=== PATIENT | male | born 1945 | race Caucasian/White ===

== ENCOUNTER 2020-02-10 11:53 | Emergency (ER) | payer MEDICARE, BC ==
[2020-02-10] MEDS ORDERED: Sodium Chloride 0.9% 1,000 ML IV ONE ×2 (12:16→13:20)
--- NOTE | 2020-02-10 12:16 | EDM.PDOC ---
ED HPI GENERAL MEDICAL PROBLEM - General Chief Complaint: Diabetic Complaint Stated Complaint: Hyperglycemia Time Seen by Provider: 02/10/20 11:59 Source of Information: Reports: Patient, Other ([facility] staff) History Limitations: Reports: No Limitations - History of Present Illness INITIAL COMMENTS - FREE TEXT/NARRATIVE: Patient sent to ER for evaluation due to hyperglycemia/nausea/emesis. Found to have elevated potassium/blood sugar this morning. Given dose of kayexalate which led to an incontinent loose stool prior to coming to hospital. Patient denies fever/chills, URI complaints, new pain complaints, UTI symptoms or other acute changes. Was given extra 10 units insulin earlier this morning. No additional information given to us from DC home - Related Data Allergies Allergy/AdvReac Type Severity Reaction Status Date / Time No Known Allergies Allergy Verified 02/10/20 12:24 Home Meds: Home Meds Acetaminophen 2 tab PO Q4HR PRN 02/10/20 [History] DULoxetine HCl [Duloxetine HCl] 1 cap PO DAILY 02/10/20 [History] Gabapentin [Neurontin] 1 cap PO TID 02/10/20 [History] Insulin Aspart [NovoLOG] 6 units SQ TID 02/10/20 [History] Insulin Glarg,Human.Rec.Analog [Lantus] 20 units SQ BEDTIME 02/10/20 [History] Levothyroxine [Synthroid] 1 tab PO DAILY 02/10/20 [History] Methylphenidate HCl [Methylphenidate LA] 1 cap PO DAILY 02/10/20 [History] Midodrine 2 tab PO TID 02/10/20 [History] Ondansetron [Zofran ODT] 1 tab SL Q6HR PRN 02/10/20 [History] SUMAtriptan [Imitrex] 1 tab PO DAILY PRN 02/10/20 [History] Sennosides [Senna] 1 cap PO DAILY 02/10/20 [History] atorvaSTATin [Lipitor] 1 tab PO DAILY 02/10/20 [History] fentaNYL [Duragesic] 1 patch TRDERM ASDIRECTED 02/10/20 [History] metFORMIN [Glucophage XR] 1 tab PO TID 02/10/20 [History] oxyCODONE 0.52 tab PO QID 02/10/20 [History] polyethylene glycoL 3350 [MiraLAX] 1 pkg PO BID PRN 02/10/20 [History] traZODone HCl [Trazodone HCl] 1 tab PO DAILY 02/10/20 [History] Past Medical History HEENT History: Reports: Hard of Hearing Cardiovascular History: Reports: CAD, High Cholesterol, Other (See Below) (Orthostatic hypotension) Respiratory History: Reports: Sleep Apnea Gastrointestinal History: Reports: Chronic Constipation, GERD Genitourinary History: Reports: BPH, Chronic Renal Insuffiency, Diabetic Nephropathy, Neurogenic Bladder Musculoskeletal History: Reports: Back Pain, Chronic, Osteoarthritis, Other (See Below) (Chronic pain) Neurological History: Reports: Migraines, Neuropathy, Diabetic Psychiatric History: Reports: Anxiety, Depression Endocrine/Metabolic History: Reports: Hypothyroidism, IDDM Hematologic History: Reports: Anemia, Other (See Below) (Vitamin D Deficiency) - History Comment History Comment: Insomnia, restless legs ED ROS GENERAL - Review of Systems Review Of Systems: Comprehensive ROS is negative, except as noted in HPI. ED EXAM GENERAL NO PERIP PULSE - Physical Exam Exam: See Below Exam Limited By: No Limitations General Appearance: Alert, WD/WN, No Apparent Distress, Other (appears tired) Eye Exam: Bilateral Eye: EOMI, PERRL Ears: Hearing Grossly Normal Nose: No: Nasal Deformity, Nasal Swelling, Nasal Drainage Throat/Mouth: Normal Voice, No Airway Compromise, Other (dry lips) Head: Atraumatic, Normocephalic Neck: Normal Inspection, Supple, Non-Tender, Full Range of Motion Respiratory/Chest: No Respiratory Distress, Lungs Clear, Normal Breath Sounds, No Accessory Muscle Use, Chest Non-Tender Cardiovascular: Regular Rate, Rhythm, No Edema, No Murmur GI/Abdominal: Soft, Non-Tender, No Distention (Male) Exam: Deferred Rectal (Males) Exam: Deferred Back Exam: No: Muscle Spasm Extremities: Non-Tender, Slow Capillary Refill Neurological: Alert, Oriented, Normal Cognition, No Motor/Sensory Deficits Psychiatric: Normal Affect, Normal Mood Skin Exam: Warm, Dry, Intact, Normal Color EKG INTERPRETATION EKG Date: 02/10/20 Time: 12:51 Rhythm: Other (First degree block) Rate (Beats/Min): 99 [place]: LAD-Left [place] Deviation P-Wave: Present QRS: Other (mild increase in QRS duration/nonspecific) ST-T: Other (No obvious ischemic changes) QT: Normal Comparison: NA - No Prior EKG (Peaked T waves noted) Course - Vital Signs Last Recorded V/S: Last Vital Signs Temp 36.6 C 02/10/20 15:00 Pulse 111 H 02/10/20 15:00 Resp 21 H 02/10/20 15:00 BP 111/53 L 02/10/20 15:00 Pulse Ox 99 02/10/20 15:00 - Orders/Labs/Meds Orders: Active Orders 24 hr Category Date Time Status EKG Documentation Completion [RC] ASDIRECTED Care 02/10/20 12:52 Active Labs: Laboratory Tests 02/10/20 02/10/20 02/10/20 Range/Units 12:10 12:10 12:10 WBC 16.5 H (4.0-10.2) K/uL RBC 3.53 L (4.33-5.41) M/uL Hgb 10.6 L (13.1-16.8) g/dL Hct 34.4 L (39.0-49.0) % MCV 97.5 D (84.0-98.0) fL MCH 30.0 (28.2-33.3) pg MCHC 30.8 L (31.7-36.0) g/dL RDW 13.3 (11.2-14.1) % Plt Count 254 (150-350) K/uL Neut % (Auto) 90.8 H (45.0-80.0) % Lymph % (Auto) 5.0 L (10.0-50.0) % [place] % (Auto) 3.7 (2.0-14.0) % Eos % (Auto) 0.1 (0.0-5.0) % Baso % (Auto) 0.4 (0.0-2.0) % Neut # (Auto) 14.95 H (1.40-7.00) K/uL Lymph # (Auto) 0.82 (0.50-3.50) K/uL [place]ell # (Auto) 0.61 (0.00-1.00) K/uL Eos # (Auto) 0.01 (0.00-0.50) K/uL Baso # (Auto) 0.07 (0.00-0.20) K/uL Sodium 130 L (136-145) mmol/L Potassium 6.8 H* (3.5-5.1) mmol/L Chloride 89 L (98-107) mmol/L Carbon Dioxide 10.7 L (21.0-32.0) mmol/L BUN 54 H (7-18) mg/dL Creatinine 2.41 H (0.51-1.17) mg/dL Est Cr Clr Drug Dosing TNP Estimated GFR (MDRD) 27 mL/min Glucose 916 H* (74-106) mg/dL Calcium 9.6 (8.5-10.1) mg/dL Magnesium 1.9 (1.8-2.4) mg/dL Total Bilirubin 0.7 (0.2-1.0) mg/dL AST 17 (15-37) U/L ALT 24 (12-78) U/L Alkaline Phosphatase 133 H (46-116) IU/L Total Protein 7.7 (6.4-8.2) g/dL Albumin 4.0 (3.4-5.0) g/dL Specimen Type Urine Color Urine Appearance Urine pH (5.0-9.0) Ur Specific [place] (1.005-1.030) Urine Protein (NEGATIVE) mg/dL Urine Glucose (UA) (NEGATIVE) mg/dL Urine Ketones (NEGATIVE) mg/dL Urine Occult Blood (NEGATIVE) Urine Nitrite (NEGATIVE) Urine Bilirubin (NEGATIVE) Urine Urobilinogen (0.2-1.0) E.U./dL Ur Leukocyte Esterase (NEGATIVE) Ketones Positive 02/10/20 02/10/20 Range/Units 13:50 14:26 WBC (4.0-10.2) K/uL RBC (4.33-5.41) M/uL Hgb (13.1-16.8) g/dL Hct (39.0-49.0) % MCV (84.0-98.0) fL MCH (28.2-33.3) pg MCHC (31.7-36.0) g/dL RDW (11.2-14.1) % Plt Count (150-350) K/uL Neut % (Auto) (45.0-80.0) % Lymph % (Auto) (10.0-50.0) % [place] % (Auto) (2.0-14.0) % Eos % (Auto) (0.0-5.0) % Baso % (Auto) (0.0-2.0) % Neut # (Auto) (1.40-7.00) K/uL Lymph # (Auto) (0.50-3.50) K/uL [place] # (Auto) (0.00-1.00) K/uL Eos # (Auto) (0.00-0.50) K/uL Baso # (Auto) (0.00-0.20) K/uL Sodium (136-145) mmol/L Potassium (3.5-5.1) mmol/L Chloride (98-107) mmol/L Carbon Dioxide (21.0-32.0) mmol/L BUN (7-18) mg/dL Creatinine (0.51-1.17) mg/dL Est Cr Clr Drug Dosing Estimated GFR (MDRD) mL/min Glucose 928 H* (74-106) mg/dL Calcium (8.5-10.1) mg/dL Magnesium (1.8-2.4) mg/dL Total Bilirubin (0.2-1.0) mg/dL AST (15-37) U/L ALT (12-78) U/L Alkaline Phosphatase (46-116) IU/L Total Protein (6.4-8.2) g/dL Albumin (3.4-5.0) g/dL Specimen Type Urinblad Urine Color Yellow Urine Appearance Clear Urine pH 5.0 (5.0-9.0) Ur Specific [place] 1.020 (1.005-1.030) Urine Protein Negative (NEGATIVE) mg/dL Urine Glucose (UA) 500 H (NEGATIVE) mg/dL Urine Ketones 40 H (NEGATIVE) mg/dL Urine Occult Blood Negative (NEGATIVE) Urine Nitrite Negative (NEGATIVE) Urine Bilirubin Small H (NEGATIVE) Urine Urobilinogen 0.2 (0.2-1.0) E.U./dL Ur Leukocyte Esterase Negative (NEGATIVE) Ketones Meds: Medications Discontinued Medications Generic Name Dose Route Start Last Admin Trade Name Freq PRN Reason Stop Dose Admin Sodium Chloride 1,000 mls @ 999 mls/hr 02/10/20 12:16 02/10/20 12:10 Normal Saline IV 02/10/20 13:16 999 mls/hr .BOLUS ONE Administration Insulin Human Regular 100 unit 100 mls @ 6.9 mls/hr 02/10/20 13:00 02/10/20 13:12 / Sodium Chloride IV 0.1 units/kg/hr TITRATE JULIA 6.9 mls/hr Administration Protocol 0.1 UNITS/KG/HR Sodium Chloride 1,000 mls @ 999 mls/hr 02/10/20 13:20 02/10/20 13:25 Normal Saline IV 02/10/20 14:20 999 mls/hr .BOLUS ONE Administration Sodium Chloride 1,000 mls @ 200 mls/hr 02/10/20 15:00 02/10/20 14:53 Normal Saline IV 200 mls/hr ASDIRECTED JULIA Administration Insulin Human Regular 15 unit 02/10/20 12:56 02/10/20 13:12 Humulin R IV 02/10/20 12:57 15 unit ONETIME ONE Administration Insulin Human Regular 15 unit 02/10/20 14:08 02/10/20 14:49 Humulin R IV 02/10/20 14:09 15 unit ONETIME ONE Administration Ondansetron HCl 4 mg 02/10/20 14:08 02/10/20 14:51 Zofran IVPUSH 02/10/20 14:09 4 mg ONETIME ONE Administration Sodium Chloride 10 ml 02/10/20 15:00 02/10/20 14:52 Saline Flush FLUSH 10 ml ASDIRECTED JULIA Administration - Re-Assessments/Exams Free Text/Narrative Re-Assessment/Exam: 02/10/20 13:22 Blood sugar over 900. Potassium 6.8 Na 130 WBC 16.5 IV bolus NS given after IV established. 15u regular insulin IV. IV insulin drip ordered. ABG ordered. +Ketones in serum. Call placed to [facility] to see if they wished the patient to be transferred to their facility. They declined given the significant elevation in blood sugar. Call placed to [facility] in [place] and patient was accepted by from ER for transfer. 02/10/20 13:43 Lab unable to draw an ABG. Call placed to [facility] to inform them of this as pH was to determine level of bed placement. 02/10/20 14:09 Lab able to get some arterial blood. pH 7.09 This was relayed to [facility]. Recheck of BS showed no improvement as it continued to be 928. Additional 15u regular insulin ordered/no additional thereafter as insulin boluses in DKA are not usually that helpful. 02/10/20 14:20 Waiting for bed confirmation from [facility]. Patient stable, resting. Departure - Departure Time of Disposition: 15:00 Disposition: DC/Tfer to Acute Hospital 02 Condition: Fair Clinical Impression: Hyperkalemia DKA (diabetic ketoacidoses) Qualifiers: Diabetes mellitus type: type 2 Diabetes mellitus complication detail: without coma Qualified Code(s): E11.10 - Type 2 diabetes mellitus with ketoacidosis without coma - Discharge Information *PRESCRIPTION DRUG MONITORING PROGRAM REVIEWED*: Not Applicable *COPY OF PRESCRIPTION DRUG MONITORING REPORT IN PATIENT MAURISIO: Not Applicable Referrals: Malka Madrid PA [Primary Care Provider] - Forms: ED Department Discharge Sepsis Event Note (ED) - Focused Exam Vital Signs: Vital Signs Temp Pulse Resp BP Pulse Ox 02/10/20 15:00 36.6 C 111 H 21 H 111/53 L 99 02/10/20 14:40 111 H 17 127/51 L 98 02/10/20 14:20 111 H 22 H 137/55 L 97 02/10/20 14:00 108 H 20 119/49 L 98 02/10/20 13:50 104 H 22 H 109/45 L 100 02/10/20 13:40 104 H 20 95/44 L 98 02/10/20 13:20 95 22 H 95/44 L 100 02/10/20 13:00 94 19 98/48 L 99 02/10/20 12:50 97 20 102/52 L 99 02/10/20 12:30 95 20 101/53 L 99 02/10/20 12:20 95 20 89/43 L 96 02/10/20 12:10 36.7 C 96 24 H 88/32 L 97 - My Orders Last 24 Hours: My Active Orders 02/10/20 12:52 EKG Documentation Completion [RC] ASDIRECTED - Assessment/Plan Last 24 Hours: My Active Orders 02/10/20 12:52 EKG Documentation Completion [RC] ASDIRECTED
[2020-02-10 12:42] LABS: CHLORIDE,CL 89 mmol/L (98-107); SODIUM,NA 130 mmol/L (136-145)
[2020-02-10] MEDS ORDERED: Insulin Regular, Human 100 Units/ML 3 ML Vial IV ONE ×2 (12:56→14:08)
[2020-02-10] MEDS ORDERED: Ondansetron 4 MG/2 ML SDV IVPUSH ONE (14:08)
[2020-02-10] MEDS ORDERED: Sodium Chloride 0.9% 1,000 ML IV SCH (15:00)
[2020-02-10] MEDS ORDERED: Sodium Chloride 0.9% 10 ML Syringe FLUSH SCH (15:00)
[2020-02-11 10:25] LABS: PCO2 ARTERIAL 20 mmHG (35-45)
[2020-02-11 10:26] LABS: BASE EXCESS ARTERIAL -22 mmol/L (-2-3); BICARBONATE,ARTERIAL 6.2 mmol/L (22-26); O2 SATURATION ARTERIAL 97 % (95-98); PO2 ARTERIAL 119 mmHG (80-105)
[2020-02-11 10:27] LABS: O2 DELIVERY DEVICE ROOM AIR
== END 2020-02-10 15:20 ==
LOC: LL.ED 11:53
DX: E11.10 Type 2 diabetes mellitus with ketoacidosis without coma (principal); E87.5 Hyperkalemia; E11.65 Type 2 diabetes mellitus with hyperglycemia; E11.22 Type 2 diabetes mellitus with diabetic chronic kidney disease; N18.9 Chronic kidney disease, unspecified; E11.21 Type 2 diabetes mellitus with diabetic nephropathy; E11.40 Type 2 diabetes mellitus with diabetic neuropathy, unspecified; I25.10 Atherosclerotic heart disease of native coronary artery without angina pectoris; E78.00 Pure hypercholesterolemia, unspecified; F41.9 Anxiety disorder, unspecified; F32.9 Major depressive disorder, single episode, unspecified; E03.9 Hypothyroidism, unspecified; Z79.4 Long term (current) use of insulin; Z79.899 Other long term (current) drug therapy
CPT/HCPCS: 36415; 36600; 51702; 80053; 81003; 82009; 82803; 82947; 83735; 85025; 93005; 96361; 96374; 99285; J1815; J2405; J7030

== ENCOUNTER 2020-02-19 10:50 | Emergency (ER) | payer MEDICARE, BC ==
[2020-02-19] MEDS ORDERED: Ondansetron 4 MG/2 ML SDV IVPUSH ONE (11:02)
[2020-02-19] MEDS ORDERED: Pantoprazole 40 MG Vial IVPUSH ONE (11:02)
[2020-02-19] MEDS ORDERED: Famotidine 20 MG/2 ML SDV IVPUSH ONE (11:02)
[2020-02-19] MEDS ORDERED: Lactated Ringers 1,000 ML IV ONE (11:02)
--- NOTE | 2020-02-19 11:02 | EDM.PDOC ---
ED HPI GENERAL MEDICAL PROBLEM - General Chief Complaint: General Stated Complaint: aches all over, hypotension, high BG Time Seen by Provider: 02/19/20 10:50 Source of Information: Reports: Patient, EMS, Longterm Records, Old Records ([facility] EMR. No paper hospital chart available.). Denies: EMS Notes Reviewed (Not available at time of dictation) History Limitations: Reports: No Limitations - History of Present Illness INITIAL COMMENTS - FREE TEXT/NARRATIVE: The patient was brought to the emergency room via ambulance with refurbish technician accompaniment with no treatment in route. Note that the patient was referred for further evaluation secondary to nonspecific diffuse arthralgias and severe hyperglycemia with blood sugar greater than 700 as taken by the paramedics at time of their arrival. Patient is an extremely poor historian secondary to his current status, although he is alert. History of 03/12 diffuse nonspecific arthralgias with no complaints of chest pain, anginal complaints, abdominal pain, fever, dyspnea, etc.. No apparent recent UTI symptoms. Limited history available from [facility]. Note similar episode in this facility on 02/10/2020 with transfer to [facility] at that time. Onset: Today, Gradual Duration: Constant, Getting Worse Location: Reports: Generalized Quality: Reports: Ache Severity: Severe Improves with: Reports: None Worsens with: Reports: None Context: Reports: Other (As above). Denies: Sick Contact, Trauma Associated Symptoms: Reports: Confusion. Denies: Chest Pain, Cough, Diaphoresis, Fever/Chills Treatments MARINATOR: Reports: Other (see below) (None) Generalized Pain Score (Numeric/FACES): 9 - Related Data Allergies Allergy/AdvReac Type Severity Reaction Status Date / Time No Known Allergies Allergy Verified 02/19/20 11:39 Home Meds: Home Meds Acetaminophen 2 tab PO Q4HR PRN 02/10/20 [History] DULoxetine HCl [Duloxetine HCl] 1 cap PO DAILY 02/10/20 [History] Gabapentin [Neurontin] 1 cap PO TID 02/10/20 [History] Insulin Aspart [NovoLOG] 6 units SQ TID 02/10/20 [History] Insulin Glarg,Human.Rec.Analog [Lantus] 20 units SQ BEDTIME 02/10/20 [History] Levothyroxine [Synthroid] 1 tab PO DAILY 02/10/20 [History] Methylphenidate HCl [Methylphenidate LA] 1 cap PO DAILY 02/10/20 [History] Midodrine 2 tab PO TID 02/10/20 [History] Ondansetron [Zofran ODT] 1 tab SL Q6HR PRN 02/10/20 [History] SUMAtriptan [Imitrex] 1 tab PO DAILY PRN 02/10/20 [History] Sennosides [Senna] 1 cap PO DAILY 02/10/20 [History] atorvaSTATin [Lipitor] 1 tab PO DAILY 02/10/20 [History] fentaNYL [Duragesic] 1 patch TRDERM ASDIRECTED 02/10/20 [History] metFORMIN [Glucophage XR] 1 tab PO TID 02/10/20 [History] oxyCODONE 0.52 tab PO QID 02/10/20 [History] polyethylene glycoL 3350 [MiraLAX] 1 pkg PO BID PRN 02/10/20 [History] traZODone HCl [Trazodone HCl] 1 tab PO DAILY 02/10/20 [History] Past Medical History HEENT History: Reports: Hard of Hearing, Other (See Below) Other HEENT History: Bilateral presbycusis. Cardiovascular History: Reports: CAD, High Cholesterol, Other (See Below) Other Cardiovascular History: Orthostatic hypotension. Respiratory History: Reports: Sleep Apnea Gastrointestinal History: Reports: Chronic Constipation, GERD, Other (See Below) Genitourinary History: Reports: BPH, Chronic Renal Insuffiency, Diabetic Nephropathy, Neurogenic Bladder Musculoskeletal History: Reports: Back Pain, Chronic, Osteoarthritis, Osteoporosis, Other (See Below) Other Musculoskeletal History: Chronic low back pain with radiculopathy. Neurological History: Reports: Headaches, Chronic, Migraines, Neuropathy, Diabetic, Neuropathy, Peripheral, Other (See Below) Other Neuro History: Restless leg syndrome. Psychiatric History: Reports: Addiction, Anxiety, Depression, Other (See Below) Other Psychiatric History: Major depressive disorder. Narcotic dependency. Chronic insomnia. Endocrine/Metabolic History: Reports: Diabetes, Type II, Hypothyroidism, IDDM, Vitamin D Deficiency, Other (See Below) Other Endocrine/Metabolic History: IDDM with recurrent hyperglycemia/ketoacidosis. Hyperkalemia secondary to renal insufficiency. Hematologic History: Reports: Anemia, Other (See Below) Other Hematologic History: Anemia secondary to renal disease. - Past Surgical History GI Surgical History: Reports: Cholecystectomy, Colon, ERCP, Other (See Below) Other GI Surgeries/Procedures: Possible ERCP at [facility] in February 2020. 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 Social & Family History - Family History Family Medical History: Unobtainable - Living Situation & Occupation Living situation: Reports: Extended Care Facility ([facility] in [facility]) ED ROS GENERAL - Review of Systems Review Of Systems: Comprehensive ROS is negative, except as noted in HPI. ED EXAM, GENERAL - Physical Exam Exam: See Below Exam Limited By: No Limitations General Appearance: Alert, No Apparent Distress, Anxious (Moderate to severe) Eye Exam: Bilateral Eye: EOMI, Normal Inspection (No nystagmus), PERRL Ears: Normal External Exam, Normal Canal, Hearing Grossly Normal, Normal TMs Nose: Normal Inspection, Normal Mucosa, No Blood Head: Atraumatic. No: Facial Swelling, Facial Tenderness, Sinus Tenderness Neck: Supple, Non-Tender, Full Range of Motion, Carotid Bruit (Mild bilateral carotid bruits). No: Lymphadenopathy (L), Lymphadenopathy (R), Thyromegaly Respiratory/Chest: No Respiratory Distress, Lungs Clear, Normal Breath Sounds, No Accessory Muscle Use, Chest Non-Tender. No: Pleural Rub, Retractions Cardiovascular: Normal Peripheral Pulses, Regular Rate, Rhythm, No Edema, No Gallop, No JVD, No Murmur, No Rub. No: Gallop/S3, Gallop/S4, Friction Rub Peripheral Pulses: 2+: Radial (L), Radial (R), Dorsalis Pedis (L), Dorsalis Pedis (R) GI/Abdominal: Normal Bowel Sounds, Soft, Non-Tender, No Organomegaly, No Distention, No Abnormal Bruit, No Mass, Pelvis Stable. No: Guarding (Male) Exam: Deferred Rectal (Males) Exam: Deferred Back Exam: Normal Inspection, Full Range of Motion. No: CVA Tenderness (L), CVA Tenderness (R), Muscle Spasm Extremities: Normal Inspection, Normal Range of Motion, Non-Tender, No Pedal Edema, Normal Capillary Refill. No: Ludwin's Sign Neurological: Alert, CN II-XII Intact, Normal Reflexes (Negative Babinski's), No Motor/Sensory Deficits, Confused (Mild but alert) Psychiatric: Anxious (Moderate), Depressed Mood (Moderate with adequate eye contact) Skin Exam: Warm, Dry, Intact, Normal Color, No Rash. No: Diaphoretic, Wound/Incision Lymphatic: No Adenopathy EKG INTERPRETATION EKG Date: 02/19/20 Time: 13:53 Rhythm: Other (Sinus tachycardia) Rate (Beats/Min): 108 [place]: LAD-Left [place] Deviation (Extended left cardiac axis) P-Wave: Enlarged (Mild diffuse biphasic P waves) QRS: Normal (0.09 seconds with resolution of previous nonspecific intraventricular block) ST-T: Other (Mild T wave inversion in lead aVL with resolution of previous peaked T waves.) QT: Normal OK/PQ Interval: OK interval of 0.18 seconds with resolution of previous first- degree AV block Comparison: Change From Previous EKG (As above since 02/10/2020) EKG Interpretation Comments: 1. No acute ischemic changes 2. First-degree AV blockresolved Course - Vital Signs Last Recorded V/S: Last Vital Signs Temp 36.5 C 02/19/20 13:46 Pulse 108 H 02/19/20 15:20 Resp 18 02/19/20 15:20 BP 106/61 02/19/20 15:20 Pulse Ox 95 02/19/20 15:20 Vital Signs - 24 hr 02/19/20 02/19/20 02/19/20 10:55 11:07 11:25 Temperature [ 36.6 C Oral] Pulse, 98 95 87 Peripheral [ Pulse Oximetry] Respiratory 20 19 19 Rate Blood Pressure 98/42 L [Left Upper Arm ] Blood Pressure 84/44 L 74/44 L 91/50 L [Right Upper Arm] O2 Sat by Pulse 98 95 95 Oximetry 02/19/20 02/19/20 02/19/20 11:45 12:00 12:15 Temperature [ Oral] Pulse, 96 95 96 Peripheral [ Pulse Oximetry] Respiratory 15 18 22 H Rate Blood Pressure [Left Upper Arm ] Blood Pressure 83/43 L 104/44 L 110/33 L [Right Upper Arm] O2 Sat by Pulse 95 96 94 L Oximetry 02/19/20 02/19/20 02/19/20 12:30 13:00 13:15 Temperature [ Oral] Pulse, 98 100 102 H Peripheral [ Pulse Oximetry] Respiratory 21 H 19 19 Rate Blood Pressure [Left Upper Arm ] Blood Pressure 108/48 L 106/49 L 88/32 L [Right Upper Arm] O2 Sat by Pulse 96 94 L 97 Oximetry 02/19/20 02/19/20 02/19/20 13:30 13:46 14:03 Temperature [ 36.5 C Oral] Pulse, 109 H 109 H 111 H Peripheral [ Pulse Oximetry] Respiratory 19 20 18 Rate Blood Pressure [Left Upper Arm ] Blood Pressure 119/53 L 99/33 L 119/72 [Right Upper Arm] O2 Sat by Pulse 98 96 98 Oximetry 02/19/20 02/19/20 02/19/20 14:13 14:17 14:40 Temperature [ Oral] Pulse, 111 H 109 H 109 H Peripheral [ Pulse Oximetry] Respiratory 18 21 H 18 Rate Blood Pressure 100/57 L 107/29 L [Left Upper Arm ] Blood Pressure 111/71 [Right Upper Arm] O2 Sat by Pulse 100 94 L 98 Oximetry 02/19/20 02/19/20 02/19/20 14:55 15:05 15:20 Temperature [ Oral] Pulse, 107 H 107 H 108 H Peripheral [ Pulse Oximetry] Respiratory 17 19 18 Rate Blood Pressure [Left Upper Arm ] Blood Pressure 120/96 H 91/53 L 106/61 [Right Upper Arm] O2 Sat by Pulse 93 L 95 95 Oximetry - Orders/Labs/Meds Orders: Active Orders 24 hr Category Date Time Status [place] Catheter Insertion [Insert Urinary Catheter] [OM. Care 02/19/20 12:15 Ordered PC] Q24H Abdomen Series w Chest 1V [CR] Stat Exams 02/19/20 11:02 Taken CULTURE BLOOD [BC] Stat Lab 02/19/20 13:05 Received CULTURE BLOOD [BC] Stat Lab 02/19/20 13:25 Received CULTURE URINE [RM] Routine Lab 02/19/20 13:11 Received Blood Culture x2 Reflex Set [OM.PC] Urgent Oth 02/19/20 11:52 Ordered Obtain Past Medical Record [OM.PC] Urgent Oth 02/19/20 11:02 Active Peripheral IV Insertion Adult [OM.PC] Routine Oth 02/19/20 11:58 Ordered Peripheral IV Insertion Adult [OM.PC] Stat Oth 02/19/20 11:02 Ordered Resuscitation Status Stat Resus Stat 02/19/20 12:31 Ordered Labs: Laboratory Tests 02/19/20 02/19/20 02/19/20 Range/Units 11:05 11:05 11:05 WBC 10.0 (4.0-10.2) K/uL RBC 3.21 L (4.33-5.41) M/uL Hgb 9.6 L (13.1-16.8) g/dL Hct 30.1 L (39.0-49.0) % MCV 93.8 D (84.0-98.0) fL MCH 29.9 (28.2-33.3) pg MCHC 31.9 (31.7-36.0) g/dL RDW 13.6 (11.2-14.1) % Plt Count 188 (150-350) K/uL Neut % (Auto) 89.0 H (45.0-80.0) % Lymph % (Auto) 6.2 L (10.0-50.0) % [place] % (Auto) 4.3 (2.0-14.0) % Eos % (Auto) 0.1 (0.0-5.0) % Baso % (Auto) 0.4 (0.0-2.0) % Neut # (Auto) 8.94 H (1.40-7.00) K/uL Lymph # (Auto) 0.62 (0.50-3.50) K/uL [place] # (Auto) 0.43 (0.00-1.00) K/uL Eos # (Auto) 0.01 (0.00-0.50) K/uL Baso # (Auto) 0.04 (0.00-0.20) K/uL PT 11.0 (9.5-12.0) SEC INR 1.1 APTT 23.2 L (24.5-32.8) SEC ABG pH (7.35-7.45) ABG pCO2 (35-45) mmHG ABG pO2 (80-105) mmHG ABG HCO3 (22-26) mmol/L ABG Total CO2 (23-27) mmol/L ABG O2 Saturation (95-98) % ABG Base Excess (-2-3) mmol/L O2 Delivery Device Sodium (136-145) mmol/L Potassium (3.5-5.1) mmol/L Chloride (98-107) mmol/L Carbon Dioxide (21.0-32.0) mmol/L BUN (7-18) mg/dL Creatinine (0.51-1.17) mg/dL Est Cr Clr Drug Dosing mL/min Estimated GFR (MDRD) mL/min Glucose (74-106) mg/dL POC Glucose (65-110) mg/dl Lactic Acid (0.4-2.0) mmol/L Uric Acid (2.6-7.2) mg/dL Calcium (8.5-10.1) mg/dL Phosphorus (2.6-4.7) mg/dL Magnesium (1.8-2.4) mg/dL Total Bilirubin (0.2-1.0) mg/dL AST (15-37) U/L ALT (12-78) U/L Alkaline Phosphatase (46-116) IU/L Total Protein (6.4-8.2) g/dL Albumin (3.4-5.0) g/dL Amylase 55 (25-115) U/L Lipase (73-393) U/L Specimen Type Urine Color Urine Appearance Urine pH (5.0-9.0) Ur Specific [place] (1.005-1.030) Urine Protein (NEGATIVE) mg/dL Urine Glucose (UA) (NEGATIVE) mg/dL Urine Ketones (NEGATIVE) mg/dL Urine Occult Blood (NEGATIVE) Urine Nitrite (NEGATIVE) Urine Bilirubin (NEGATIVE) Urine Urobilinogen (0.2-1.0) E.U./dL Ur Leukocyte Esterase (NEGATIVE) U Hyaline Cast (Auto) Urine RBC /HPF Urine WBC /HPF Ketones 02/19/20 02/19/20 02/19/20 Range/Units 11:05 11:05 11:05 WBC (4.0-10.2) K/uL RBC (4.33-5.41) M/uL Hgb (13.1-16.8) g/dL Hct (39.0-49.0) % MCV (84.0-98.0) fL MCH (28.2-33.3) pg MCHC (31.7-36.0) g/dL RDW (11.2-14.1) % Plt Count (150-350) K/uL Neut % (Auto) (45.0-80.0) % Lymph % (Auto) (10.0-50.0) % [place] % (Auto) (2.0-14.0) % Eos % (Auto) (0.0-5.0) % Baso % (Auto) (0.0-2.0) % Neut # (Auto) (1.40-7.00) K/uL Lymph # (Auto) (0.50-3.50) K/uL [place] # (Auto) (0.00-1.00) K/uL Eos # (Auto) (0.00-0.50) K/uL Baso # (Auto) (0.00-0.20) K/uL PT (9.5-12.0) SEC INR APTT (24.5-32.8) SEC ABG pH (7.35-7.45) ABG pCO2 (35-45) mmHG ABG pO2 (80-105) mmHG ABG HCO3 (22-26) mmol/L ABG Total CO2 (23-27) mmol/L ABG O2 Saturation (95-98) % ABG Base Excess (-2-3) mmol/L O2 Delivery Device Sodium 131 L (136-145) mmol/L Potassium 6.0 H* (3.5-5.1) mmol/L Chloride 91 L (98-107) mmol/L Carbon Dioxide 12.4 L (21.0-32.0) mmol/L BUN 31 H (7-18) mg/dL Creatinine 1.93 H (0.51-1.17) mg/dL Est Cr Clr Drug Dosing 32.98 mL/min Estimated GFR (MDRD) 34 mL/min Glucose 739 H* (74-106) mg/dL POC Glucose (65-110) mg/dl Lactic Acid 5.8 H (0.4-2.0) mmol/L Uric Acid 6.4 (2.6-7.2) mg/dL Calcium 8.5 (8.5-10.1) mg/dL Phosphorus 5.1 H (2.6-4.7) mg/dL Magnesium 1.5 L (1.8-2.4) mg/dL Total Bilirubin 0.6 (0.2-1.0) mg/dL AST 31 (15-37) U/L ALT 26 (12-78) U/L Alkaline Phosphatase 102 (46-116) IU/L Total Protein 6.3 L (6.4-8.2) g/dL Albumin 3.3 L (3.4-5.0) g/dL Amylase (25-115) U/L Lipase 118 (73-393) U/L Specimen Type Urine Color Urine Appearance Urine pH (5.0-9.0) Ur Specific [place] (1.005-1.030) Urine Protein (NEGATIVE) mg/dL Urine Glucose (UA) (NEGATIVE) mg/dL Urine Ketones (NEGATIVE) mg/dL Urine Occult Blood (NEGATIVE) Urine Nitrite (NEGATIVE) Urine Bilirubin (NEGATIVE) Urine Urobilinogen (0.2-1.0) E.U./dL Ur Leukocyte Esterase (NEGATIVE) U Hyaline Cast (Auto) Urine RBC /HPF Urine WBC /HPF Ketones 02/19/20 02/19/20 02/19/20 Range/Units 11:05 13:05 13:11 WBC (4.0-10.2) K/uL RBC (4.33-5.41) M/uL Hgb (13.1-16.8) g/dL Hct (39.0-49.0) % MCV (84.0-98.0) fL MCH (28.2-33.3) pg MCHC (31.7-36.0) g/dL RDW (11.2-14.1) % Plt Count (150-350) K/uL Neut % (Auto) (45.0-80.0) % Lymph % (Auto) (10.0-50.0) % [place] % (Auto) (2.0-14.0) % Eos % (Auto) (0.0-5.0) % Baso % (Auto) (0.0-2.0) % Neut # (Auto) (1.40-7.00) K/uL Lymph # (Auto) (0.50-3.50) K/uL [place] # (Auto) (0.00-1.00) K/uL Eos # (Auto) (0.00-0.50) K/uL Baso # (Auto) (0.00-0.20) K/uL PT (9.5-12.0) SEC INR APTT (24.5-32.8) SEC ABG pH (7.35-7.45) ABG pCO2 (35-45) mmHG ABG pO2 (80-105) mmHG ABG HCO3 (22-26) mmol/L ABG Total CO2 (23-27) mmol/L ABG O2 Saturation (95-98) % ABG Base Excess (-2-3) mmol/L O2 Delivery Device Sodium (136-145) mmol/L Potassium 4.7 (3.5-5.1) mmol/L Chloride (98-107) mmol/L Carbon Dioxide (21.0-32.0) mmol/L BUN (7-18) mg/dL Creatinine (0.51-1.17) mg/dL Est Cr Clr Drug Dosing mL/min Estimated GFR (MDRD) mL/min Glucose 726 H* (74-106) mg/dL POC Glucose (65-110) mg/dl Lactic Acid (0.4-2.0) mmol/L Uric Acid (2.6-7.2) mg/dL Calcium (8.5-10.1) mg/dL Phosphorus (2.6-4.7) mg/dL Magnesium (1.8-2.4) mg/dL Total Bilirubin (0.2-1.0) mg/dL AST (15-37) U/L ALT (12-78) U/L Alkaline Phosphatase (46-116) IU/L Total Protein (6.4-8.2) g/dL Albumin (3.4-5.0) g/dL Amylase (25-115) U/L Lipase (73-393) U/L Specimen Type [place] Urine Color Yellow Urine Appearance Clear Urine pH 5.0 (5.0-9.0) Ur Specific [place] 1.015 (1.005-1.030) Urine Protein Negative (NEGATIVE) mg/dL Urine Glucose (UA) >=1000 H (NEGATIVE) mg/dL Urine Ketones 80 H (NEGATIVE) mg/dL Urine Occult Blood Negative (NEGATIVE) Urine Nitrite Negative (NEGATIVE) Urine Bilirubin Negative (NEGATIVE) Urine Urobilinogen 0.2 (0.2-1.0) E.U./dL Ur Leukocyte Esterase Negative (NEGATIVE) U Hyaline Cast (Auto) Rare Urine RBC Not seen /HPF Urine WBC Not seen /HPF Ketones Small-20 mg/dl 02/19/20 02/19/2002/18/20 Range/Units 13:16 14:00 14:48 WBC (4.0-10.2) K/uL RBC (4.33-5.41) M/uL Hgb (13.1-16.8) g/dL Hct (39.0-49.0) % MCV (84.0-98.0) fL MCH (28.2-33.3) pg MCHC (31.7-36.0) g/dL RDW (11.2-14.1) % Plt Count (150-350) K/uL Neut % (Auto) (45.0-80.0) % Lymph % (Auto) (10.0-50.0) % [place] % (Auto) (2.0-14.0) % Eos % (Auto) (0.0-5.0) % Baso % (Auto) (0.0-2.0) % Neut # (Auto) (1.40-7.00) K/uL Lymph # (Auto) (0.50-3.50) K/uL [place] # (Auto) (0.00-1.00) K/uL Eos # (Auto) (0.00-0.50) K/uL Baso # (Auto) (0.00-0.20) K/uL PT (9.5-12.0) SEC INR APTT (24.5-32.8) SEC ABG pH 7.10 L* (7.35-7.45) ABG pCO2 21 L* (35-45) mmHG ABG pO2 114 H (80-105) mmHG ABG HCO3 6.5 L (22-26) mmol/L ABG Total CO2 8 L (23-27) mmol/L ABG O2 Saturation 97 (95-98) % ABG Base Excess -21 L (-2-3) mmol/L O2 Delivery Device Room air Sodium (136-145) mmol/L Potassium (3.5-5.1) mmol/L Chloride (98-107) mmol/L Carbon Dioxide (21.0-32.0) mmol/L BUN (7-18) mg/dL Creatinine (0.51-1.17) mg/dL Est Cr Clr Drug Dosing mL/min Estimated GFR (MDRD) mL/min Glucose (74-106) mg/dL POC Glucose > 500 H* > 500 H* (65-110) mg/dl Lactic Acid (0.4-2.0) mmol/L Uric Acid (2.6-7.2) mg/dL Calcium (8.5-10.1) mg/dL Phosphorus (2.6-4.7) mg/dL Magnesium (1.8-2.4) mg/dL Total Bilirubin (0.2-1.0) mg/dL AST (15-37) U/L ALT (12-78) U/L Alkaline Phosphatase (46-116) IU/L Total Protein (6.4-8.2) g/dL Albumin (3.4-5.0) g/dL Amylase (25-115) U/L Lipase (73-393) U/L Specimen Type Urine Color Urine Appearance Urine pH (5.0-9.0) Ur Specific [place] (1.005-1.030) Urine Protein (NEGATIVE) mg/dL Urine Glucose (UA) (NEGATIVE) mg/dL Urine Ketones (NEGATIVE) mg/dL Urine Occult Blood (NEGATIVE) Urine Nitrite (NEGATIVE) Urine Bilirubin (NEGATIVE) Urine Urobilinogen (0.2-1.0) E.U./dL Ur Leukocyte Esterase (NEGATIVE) U Hyaline Cast (Auto) Urine RBC /HPF Urine WBC /HPF Ketones Urine specimen sent for culture and sensitivity. Blood cultures x2 were collected. Meds: Medications Discontinued Medications Generic Name Dose Route Start Last Admin Trade Name Freq PRN Reason Stop Dose Admin Famotidine 40 mg 02/19/20 11:02 02/19/20 11:24 Pepcid IVPUSH 02/19/20 11:03 40 mg ONETIME ONE Administration Furosemide 60 mg 02/19/20 11:53 02/19/20 13:11 Lasix IVPUSH 02/19/20 11:54 60 mg NOW ONE Administration Hydromorphone HCl 1 mg 02/19/20 11:04 02/19/20 11:12 Dilaudid IVPUSH 02/19/20 11:05 1 mg ONETIME ONE Administration Hydromorphone HCl 1 mg 02/19/20 14:39 02/19/20 14:54 Dilaudid IVPUSH 02/19/20 14:40 1 mg ONETIME ONE Administration Lactated Ringer's 1,000 mls @ 999 mls/hr 02/19/20 11:02 02/19/20 11:12 Ringers, Lactated IV 02/19/20 12:02 999 mls/hr .BOLUS ONE Administration Ceftriaxone Sodium 1 gm/ 100 mls @ 200 mls/hr 02/19/20 11:52 02/19/20 13:16 Sodium Chloride IV 02/19/20 12:21 200 mls/hr ONETIME ONE Administration Insulin Human Regular 300 unit 100 mls @ 2.298 mls/hr 02/19/20 12:00 / Sodium Chloride IV TITRATE JULIA Protocol 0.1 UNITS/KG/HR Sodium Chloride 1,000 mls @ 100 mls/hr 02/19/20 12:45 02/19/20 12:46 Normal Saline IV 100 mls/hr ASDIRECTED JULIA Administration Sodium Chloride 1,000 mls @ 125 mls/hr 02/19/20 12:45 02/19/20 13:49 Sodium Chloride 0.45% IV 125 mls/hr ASDIRECTED JULIA Administration Insulin Human Regular 100 unit 100 mls @ 6.895 mls/hr 02/19/20 13:30 02/19/20 13:44 / Sodium Chloride IV 0.1 units/kg/hr TITRATE JULIA 6.895 mls/hr Administration Protocol 0.1 UNITS/KG/HR Insulin Human Regular 10 unit 02/19/20 11:58 02/19/20 12:34 Humulin R IV 02/19/20 11:59 10 units ONETIME ONE Administration Ondansetron HCl 4 mg 02/19/20 11:02 02/19/20 11:15 Zofran IVPUSH 02/19/20 11:03 4 mg ONETIME ONE Administration Pantoprazole Sodium 40 mg 02/19/20 11:02 02/19/20 11:20 Protonix Iv IVPUSH 02/19/20 11:03 40 mg ONETIME ONE Administration Sodium Bicarbonate 50 meq 02/19/20 14:19 02/19/20 15:09 Sodium Bicarbonate 8.4% IVPUSH 02/19/20 14:20 Not Given ONETIME ONE Sodium Chloride 10 ml 02/19/20 11:02 02/19/20 14:56 Saline Flush FLUSH 10 ml ASDIRECTED PRN Administration Keep Vein Open Sodium Chloride 10 ml 02/19/20 11:58 Saline Flush FLUSH ASDIRECTED PRN Keep Vein Open Sodium Polystyrene Sulfonate 15 gm 02/19/20 13:28 02/19/20 13:46 Kayexalate PO 02/19/20 13:29 15 gm ONETIME ONE Administration - Radiology Interpretation Free Text/Narrative:: monitoring tech showed normal sinus rhythm with heart rate in the 90s initially with subsequent mild tachycardia in the 100s, however no ectopy or arrhythmia. Acute abdominal x-rays shows mild nonspecific bowel gaseous pattern with no free air, fluid levels, ileus, or obstruction. Note some pancreatic calcifications. No cardiomegaly, CHF, pulmonary infiltrates, pneumothorax, etc. Departure - Departure Time of Disposition: 15:35 Disposition: DC/Tfer to [facility] 02 Condition: Fair Clinical Impression: IDDM (insulin dependent diabetes mellitus), Hyperphosphatemia, Anemia, Hyperkalemia, DKA (diabetic ketoacidoses), Osteoarthritis, Elevated lactic acid level - Discharge Information *PRESCRIPTION DRUG MONITORING PROGRAM REVIEWED*: Not Applicable *COPY OF PRESCRIPTION DRUG MONITORING REPORT IN PATIENT MAURISIO: Not Applicable Referrals: PCP,None [Primary Care Provider] - Forms: ED Department Discharge, Interfacility Transfer EMTALA Sepsis Event Note (ED) - Focused Exam Vital Signs: Vital Signs Temp Pulse Resp BP BP Pulse Ox 02/19/20 15:20 108 H 18 106/61 95 02/19/20 15:05 107 H 19 91/53 L 95 02/19/20 14:55 107 H 17 120/96 H 93 L 02/19/20 14:40 109 H 18 111/71 98 02/19/20 14:17 109 H 21 H 107/29 L 94 L 02/19/20 14:13 111 H 18 100/57 L 100 02/19/20 14:03 111 H 18 119/72 98 02/19/20 13:46 36.5 C 109 H 20 99/33 L 96 02/19/20 13:30 109 H 19 119/53 L 98 02/19/20 13:15 102 H 19 88/32 L 97 02/19/20 13:00 100 19 106/49 L 94 L 02/19/20 12:30 98 21 H 108/48 L 96 02/19/20 12:15 96 22 H 110/33 L 94 L 02/19/20 12:00 95 18 104/44 L 96 02/19/20 11:45 96 15 83/43 L 95 02/19/20 11:25 87 19 91/50 L 95 02/19/20 11:07 95 19 74/44 L 95 02/19/20 10:55 36.6 C 98 20 98/42 L 84/44 L 98 - Problem List & Annotations (1) DKA (diabetic ketoacidoses) SNOMED Code(s): 623419168, 393706076 Code(s): E11.10 - TYPE 2 DIABETES MELLITUS WITH KETOACIDOSIS WITHOUT COMA Status: Acute Priority: High Onset Date: 02/19/20 Annotation/Comment:: Recurrent diabetic ketoacidosis with previous evaluation in this emergency room on 02/10/2020 as above. Patient apparently received an ERCP at [facility] during that previous hospitalization with no significant abdominal findings by today's exam. Amylase and lipase are normal despite possible pancreatic calcifications by today's x-rays. Further work-up by accepting providers depending on his clinical course. Telephone consultation at 13: [address] Gary, emergency room physician at [facility] in [place], who does accept the patient for direct admission. He will contact admitting physicians concerning this patient transfer. No further treatment recommendations given. Ambulance transfer with refurbish technician accompaniment. Note aggressive IV hydration during his emergency room care including 1 L lactated Ringer's by IV bolus., 500 mL of normal saline, and then changed to half-normal saline at 125 mls per hour prior to transfer. Despite some mildmoderate acidosis by ABGs today no sodium bicarbonate was given as per recommendations from accepting provider as above. Note persistent significant hyperglycemia prior to patient transfer. Qualifiers: Diabetes mellitus type: type 2 Diabetes mellitus complication detail: without coma Qualified Code(s): E11.10 - Type 2 diabetes mellitus with ketoacidosis without coma (2) Elevated lactic acid level SNOMED Code(s): 7409782 Code(s): R79.89 - OTHER SPECIFIED ABNORMAL FINDINGS OF BLOOD CHEMISTRY Status: Acute Priority: High Onset Date: 02/19/20 Annotation/Comment:: Note some hypotension at time of patient arrival with aggressive IV hydration as above. No direct clinical evidence of sepsis with no leukocytosis. Sepsis protocol was initiated, however, including IV fluids as above and initiation of IV Rocephin after blood cultures x2 were collected. Patient does have a previous history of hypotension with stable blood pressures at time of transfer. (3) Anemia SNOMED Code(s): 951146076 Code(s): D64.9 - ANEMIA, UNSPECIFIED Status: Acute Priority: High Annotation/Comment:: Note progressive anemia with hemoglobin of 10.6 on 02/09 and 9.6 today. No direct evidence of acute GI bleed. High-dose IV Pepcid and IV Protonix were given as GI prophylaxis. Further work-up by accepting providers depending on her clinical course. Qualifiers: Anemia type: unspecified type Qualified Code(s): D64.9 - Anemia, unspecified (4) Hyperkalemia SNOMED Code(s): 03461894 Code(s): E87.5 - HYPERKALEMIA Status: Acute Priority: High Onset Date: 02/19/20 Annotation/Comment:: Recurrent hyperkalemia with human regular insulin 10 units IV bolus given with initiation of human regular IV infusion by standard protocol. Kayexalate also given orally. Potassium normal at time of transfer with consideration of initiation of additional potassium by IV and/oral by accepting providers secondary to continued insulin infusion requirement. (5) Hyperphosphatemia SNOMED Code(s): 18474591 Code(s): E83.39 - OTHER DISORDERS OF PHOSPHORUS METABOLISM Status: Acute Priority: High Onset Date: 02/19/20 Annotation/Comment:: Consider PhosLo by accepting providers. (6) IDDM (insulin dependent diabetes mellitus) SNOMED Code(s): 48506962 Code(s): [id number] - Status: Chronic Priority: High Annotation/Comment:: Recurrent diabetic ketoacidosis as above. Further insulin adjustment by accepting providers. (7) Osteoarthritis SNOMED Code(s): 171426063 Code(s): M19.90 - UNSPECIFIED OSTEOARTHRITIS, UNSPECIFIED SITE Status: Chronic Priority: High Annotation/Comment:: Nonspecific arthralgias. IV Dilaudid required in the emergency room for patient comfort. Note history of chronic narcotic use and dependency. Qualifiers: Osteoarthritis location: multiple joints Osteoarthritis type: primary Qualified Code(s): M89.49 - Other hypertrophic osteoarthropathy, multiple sites - Problem List Review Problem List Initiated/Reviewed/Updated: Yes - My Orders Last 24 Hours: My Active Orders 02/19/20 11:02 Abdomen Series w Chest 1V [CR] Stat Obtain Past Medical Record [OM.PC] Urgent Peripheral IV Insertion Adult [OM.PC] Stat 02/19/20 11:52 Blood Culture x2 Reflex Set [OM.PC] Urgent 02/19/20 11:58 Peripheral IV Insertion Adult [OM.PC] Routine 02/19/20 12:15 Huntley Catheter Insertion [Insert Urinary Catheter] [OM.PC] Q24H 02/19/20 12:31 Resuscitation Status Stat 02/19/20 13:05 CULTURE BLOOD [BC] Stat 02/19/20 13:11 CULTURE URINE [RM] Routine 02/19/20 13:25 CULTURE BLOOD [BC] Stat - Assessment/Plan Last 24 Hours: My Active Orders 02/19/20 11:02 Abdomen Series w Chest 1V [CR] Stat Obtain Past Medical Record [OM.PC] Urgent Peripheral IV Insertion Adult [OM.PC] Stat 02/19/20 11:52 Blood Culture x2 Reflex Set [OM.PC] Urgent 02/19/20 11:58 Peripheral IV Insertion Adult [OM.PC] Routine 02/19/20 12:15 [place] Catheter Insertion [Insert Urinary Catheter] [OM.PC] Q24H 02/19/20 12:31 Resuscitation Status Stat 02/19/20 13:05 CULTURE BLOOD [BC] Stat 02/19/20 13:11 CULTURE URINE [RM] Routine 02/19/20 13:25 CULTURE BLOOD [BC] Stat Assessment:: As above Plan: As above. Extensive precautions were given to the patient, who is in agreement with the treatment plan. Ambulance transfer to [place] with refurbish technician accompaniment as above.
[2020-02-19] MEDS ORDERED: HYDROmorphone 1 MG/ML Syringe IVPUSH ONE ×2 (11:04→14:39)
[2020-02-19] MEDS: Sodium Chloride 0.9% 10 ML Syringe FLUSH PRN ×4 (11:18→14:56)
[2020-02-19 11:26] LABS: PTT,PARTIAL THROMBOPLSTIN TIME 23.2 SEC (24.5-32.8)
[2020-02-19] MEDS ORDERED: cefTRIAXone 1 GM in Sodium Chloride 0.9% 100 ML IV ONE (11:52)
[2020-02-19] MEDS ORDERED: Furosemide 40 MG/4 ML VIAL IVPUSH ONE (11:53)
[2020-02-19] MEDS ORDERED: Sodium Chloride 0.9% 10 ML Syringe FLUSH PRN (11:58)
[2020-02-19] MEDS ORDERED: Insulin Regular, Human 100 Units/ML 3 ML Vial IV ONE (11:58)
[2020-02-19] MEDS ORDERED: HUMAN IV SCH ×2 (12:00)
[2020-02-19] MEDS ORDERED: INSULIN REGULAR IV SCH ×2 (12:00)
[2020-02-19] MEDS ORDERED: SODIUM CHLORIDE 0.9% IV SCH ×2 (12:00)
[2020-02-19] MEDS ORDERED: Sodium Chloride 0.45% 1,000 ML IV SCH (12:45)
[2020-02-19] MEDS ORDERED: Sodium Chloride 0.9% 1,000 ML IV SCH (12:45)
[2020-02-19] MEDS ORDERED: Sodium Polystyrene Sulfonate 15 GM/60 ML Susp 60 ML Bot PO ONE (13:28)
[2020-02-19] MEDS ORDERED: Sodium Bicarbonate 8.4% 50 MEQ/50 ML Syringe IVPUSH ONE (14:19)
[2020-02-19 14:21] LABS: O2 DELIVERY DEVICE ROOM AIR
[2020-02-19 14:29] LABS: BASE EXCESS ARTERIAL -21 mmol/L (-2-3); BICARBONATE,ARTERIAL 6.5 mmol/L (22-26); O2 SATURATION ARTERIAL 97 % (95-98); PCO2 ARTERIAL 21 mmHG (35-45); PO2 ARTERIAL 114 mmHG (80-105)
== END 2020-02-19 15:35 ==
LOC: LL.ED 10:50
DX: E11.10 Type 2 diabetes mellitus with ketoacidosis without coma (principal); D64.9 Anemia, unspecified; E87.5 Hyperkalemia; M19.90 Unspecified osteoarthritis, unspecified site; E83.39 Other disorders of phosphorus metabolism; R74.0 Nonspecific elevation of levels of transaminase and lactic acid dehydrogenase [LDH]; E11.22 Type 2 diabetes mellitus with diabetic chronic kidney disease; E11.21 Type 2 diabetes mellitus with diabetic nephropathy; E11.42 Type 2 diabetes mellitus with diabetic polyneuropathy; E03.9 Hypothyroidism, unspecified; F32.9 Major depressive disorder, single episode, unspecified; E78.00 Pure hypercholesterolemia, unspecified; I25.10 Atherosclerotic heart disease of native coronary artery without angina pectoris; G43.909 Migraine, unspecified, not intractable, without status migrainosus; Z79.4 Long term (current) use of insulin; Z79.899 Other long term (current) drug therapy
CPT/HCPCS: 36415; 51702; 74022; 80053; 81001; 82009; 82150; 82803; 82947; 82962; 83605; 83690; 83735; 84100; 84132; 84550; 85025; 85610; 85730; 87040; 87086; 93005; 96361; 96365; 96375; 96376; 99285-25; A9270-GY; C9113; J0696; J1170; J1815-GY; J1940; J2405; J3490; J7030; J7050; J7120

== ENCOUNTER 2020-04-13 10:18 | Emergency (ER) | payer MEDICARE, BC ==
[2020-04-13] MEDS ORDERED: Sodium Chloride 0.9% 1,000 ML IV ONE (10:21)
[2020-04-13] MEDS ORDERED: Ondansetron 4 MG/2 ML SDV IVPUSH ONE (10:22)
[2020-04-13] MEDS ORDERED: Morphine 2 MG/ML SYRINGE IVPUSH ONE ×2 (10:50→11:47)
[2020-04-13 10:56] LABS: CHLORIDE,CL 95 mmol/L (98-107); SODIUM,NA 128 mmol/L (136-145)
[2020-04-13] MEDS ORDERED: Insulin Regular, Human 100 Units/ML 3 ML Vial IV ONE (11:44)
[2020-04-13] MEDS: Sodium Chloride 0.9% 10 ML Syringe FLUSH PRN ×2 (12:01→14:22)
--- NOTE | 2020-04-13 12:12 | EDM.PDOC ---
ED HPI GENERAL MEDICAL PROBLEM - General Chief Complaint: General Stated Complaint: Nausea/Vomiting, elevated blood sugar Time Seen by Provider: 04/13/20 10:20 Source of Information: Reports: Patient, Care Home Records - History of Present Illness INITIAL COMMENTS - FREE TEXT/NARRATIVE: Pt present to ER from [facility] with N/V and elevated blood glucose Has hx/o multiple episodes of hyperglycemia On 03/01 pt transferred with glucose 1176 Onset: Gradual Duration: Day(s): Location: Reports: Generalized Associated Symptoms: Reports: Nausea/Vomiting - Related Data Allergies Allergy/AdvReac Type Severity Reaction Status Date / Time tamsulosin Allergy Hypotension Verified 04/13/20 10:55 zolpidem [Zolpidem] AdvReac Mild Change Verified 04/13/20 10:55 Mental Status alprazolam AdvReac Change Verified 04/13/20 10:55 Mental Status diazepam AdvReac Change Verified 04/13/20 10:55 Mental Status trazodone AdvReac Change Verified 04/13/20 10:55 Mental Status Home Meds: Home Meds fentaNYL [Fentanyl] 75 mcg TRDERM ASDIRECTED 01/01/19 [History] polyethylene glycoL 3350 [MiraLAX] 17 gm PO DAILY PRN 01/01/19 [History] Gabapentin [Neurontin] 300 mg PO TID 03/10/19 [History] atorvaSTATin [Lipitor] 40 mg PO BEDTIME 03/10/19 [History] Aspirin [Halfprin] 81 mg PO DAILY 03/26/19 [History] Citalopram [Citalopram HBr] 20 mg PO DAILY 03/26/19 [History] Hydrocodone/Acetaminophen [Hydrocodone-Acetamin 10-325 mg] 1 tab PO Q4H PRN 03/26/19 [History] Ranitidine [Zantac] 150 mg PO BEDTIME 03/26/19 [History] SUMAtriptan succinate [Imitrex] 100 mg PO Q2H PRN 03/26/19 [History] diphenhydrAMINE [Benadryl] 25 mg PO BEDTIME PRN 03/26/19 [History] lisinopriL [Lisinopril] 2.5 mg PO DAILY 03/26/19 [History] Calcium Carbonate/Vitamin D3 [Calcium 600 + Vit D 200] 1 tab PO DAILY 04/19/19 [History] Glucagon [Gvoke Pfs 1-Pack Syringe] 1 mg IM ASDIRECTED PRN 04/19/19 [History] Insulin Glarg,Human.Rec.Analog [Lantus] 10 unit SUBCUT BID #14 ml 04/23/19 [Rx] Levothyroxine 25 mcg PO ACBREAKFAST #20 tablet 04/23/19 [Rx] Acetaminophen 2 tab PO Q4HR PRN 02/10/20 [History] DULoxetine HCl [Duloxetine HCl] 1 cap PO DAILY 02/10/20 [History] Gabapentin [Neurontin] 1 cap PO TID 02/10/20 [History] Insulin Aspart [NovoLOG] 6 units SQ TID 02/10/20 [History] Insulin Glarg,Human.Rec.Analog [Lantus] 20 units SQ BEDTIME 02/10/20 [History] Levothyroxine [Synthroid] 1 tab PO DAILY 02/10/20 [History] Methylphenidate HCl [Methylphenidate LA] 1 cap PO DAILY 02/10/20 [History] Midodrine 2 tab PO TID 02/10/20 [History] Ondansetron [Zofran ODT] 1 tab SL Q6HR PRN 02/10/20 [History] SUMAtriptan [Imitrex] 1 tab PO DAILY PRN 02/10/20 [History] Sennosides [Senna] 1 cap PO DAILY 02/10/20 [History] atorvaSTATin [Lipitor] 1 tab PO DAILY 02/10/20 [History] fentaNYL [Duragesic] 1 patch TRDERM ASDIRECTED 02/10/20 [History] metFORMIN [Glucophage XR] 1 tab PO TID 02/10/20 [History] oxyCODONE 0.52 tab PO QID 02/10/20 [History] polyethylene glycoL 3350 [MiraLAX] 1 pkg PO BID PRN 02/10/20 [History] traZODone HCl [Trazodone HCl] 1 tab PO DAILY 02/10/20 [History] DULoxetine HCl [Cymbalta] 30 mg PO BEDTIME 03/01/20 [History] Insulin Aspart [NovoLOG] 6 units SUBCUT TIDMEALS 03/01/20 [History] Melatonin 3 mg PO BEDTIME 03/01/20 [History] Past Medical History HEENT History: Reports: Hard of Hearing, Other (See Below) Other HEENT History: wears eyeglasses. Cardiovascular History: Reports: CAD, High Cholesterol, Hypertension, Other (See Below) Other Cardiovascular History: orthostatic hypotension Respiratory History: Reports: Sleep Apnea Other Respiratory History: states has C-PAP but doesn't use it due to "It's so loud." Gastrointestinal History: Reports: Chronic Constipation, GERD, Other (See Below) Genitourinary History: Reports: BPH, Chronic Renal Insuffiency, Diabetic Nephropathy, Neurogenic Bladder, Other (See Below) Other Genitourinary History: stress incontinence, stage 3 kidney disease Musculoskeletal History: Reports: Back Pain, Chronic, Other (See Below), Osteoporosis, Osteoarthritis Other Musculoskeletal History: Chronic low back pain with radiculopathy. Neurological History: Reports: Headaches, Chronic, Migraines, Neuropathy, Diabetic, Neuropathy, Peripheral, Other (See Below) Other Neuro History: Restless leg syndrome. Psychiatric History: Reports: Addiction, Anxiety, Depression, Other (See Below) Other Psychiatric History: insomnia Endocrine/Metabolic History: Reports: Diabetes, Type II, Hypothyroidism, IDDM, Other (See Below), Vitamin D Deficiency Other Endocrine/Metabolic History: IDDM with recurrent hypergly cemia/ketoacidosis. Hyperkalemia secondary to renal insufficiency. Hematologic History: Reports: Anemia, None, Other (See Below) Other Hematologic History: Anemia secondary to renal disease. Immunologic History: Reports: None Oncologic (Cancer) History: Reports: None Dermatologic History: Reports: None - Infectious Disease History Infectious Disease History: Reports: Chicken Pox, Measles, Mumps - Past Surgical History GI Surgical History: Reports: Cholecystectomy, Colonoscopy, Colon, EGD, ERCP, Other (See Below) - History Comment History Comment: Insomnia, restless legs Social & Family History - Family History Family Medical History: Noncontributory - Caffeine Use Caffeine Use: Reports: Coffee, Soda - Living Situation & Occupation Living situation: Reports: , Extended Care Facility, with Significant Other Occupation: Retired ED ROS GENERAL - Review of Systems Review Of Systems: See Below Constitutional: Reports: Weakness, Fatigue HEENT: Reports: No Symptoms Respiratory: Reports: No Symptoms Cardiovascular: Reports: No Symptoms GI/Abdominal: Reports: Nausea, Vomiting Musculoskeletal: Reports: Back Pain ED EXAM, GENERAL - Physical Exam Exam: See Below Exam Limited By: Other (Sleepy) General Appearance: Moderate Distress Eye Exam: Bilateral Eye: EOMI, PERRL Throat/Mouth: Normal Oropharynx Neck: Supple Respiratory/Chest: Lungs Clear Cardiovascular: Regular Rate, Rhythm GI/Abdominal: Soft, Non-Tender Extremities: No Pedal Edema Neurological: Alert, Oriented, No Motor/Sensory Deficits, Other (Sllepy but arouses) EKG INTERPRETATION EKG Interpretation Comments: No T-wave changes Course - Orders/Labs/Meds Orders: Active Orders 24 hr Category Date Time Status Blood Glucose Check, Bedside [RC] ONETIME Care 04/13/20 10:21 Active EKG Documentation Completion [RC] ASDIRECTED Care 04/13/20 11:29 Active BLOOD GAS ARTERIAL,POC [POC] Stat Lab 04/13/20 12:02 Ordered Regular Insulin,Human 100 Units in Normal Saline @ 0.1 Med 04/13/20 12:15 Ordered UNITS/KG/HR Insulin Regular, Human [HumuLIN R] 100 unit Sodium Chloride 0.9% [Normal Saline] 99 ml IV TITRATE Sodium Chloride 0.9% [Saline Flush] Med 04/13/20 11:56 Active 10 ml FLUSH ASDIRECTED PRN Medication Orders Insulin Human Regular 100 unit (/ Sodium Chloride) 100 mls @ 0 mls/hr IV TITRATE JULIA; Protocol Sodium Chloride (Saline Flush) 10 ml FLUSH ASDIRECTED PRN PRN Reason: Keep Vein Open Last Admin: 04/13/20 12:01 Dose: 10 ml Documented by: GOMEZ Labs: Laboratory Tests 04/13/20 04/13/20 04/13/20 Range/Units 10:21 10:30 10:30 WBC 6.4 (4.0-10.2) K/uL RBC 3.39 L (4.33-5.41) M/uL Hgb 10.0 L (13.1-16.8) g/dL Hct 30.7 L (39.0-49.0) % MCV 90.6 D (84.0-98.0) fL MCH 29.5 (28.2-33.3) pg MCHC 32.6 (31.7-36.0) g/dL RDW 13.8 (11.2-14.1) % Plt Count 273 (150-350) K/uL Neut % (Auto) 77.1 (45.0-80.0) % Lymph % (Auto) 10.6 (10.0-50.0) % [place] % (Auto) 7.1 (2.0-14.0) % Eos % (Auto) 3.9 (0.0-5.0) % Baso % (Auto) 1.3 (0.0-2.0) % Neut # (Auto) 4.90 (1.40-7.00) K/uL Lymph # (Auto) 0.67 (0.50-3.50) K/uL [place] # (Auto) 0.45 (0.00-1.00) K/uL Eos # (Auto) 0.25 (0.00-0.50) K/uL Baso # (Auto) 0.08 (0.00-0.20) K/uL Sodium 128 L (136-145) mmol/L Potassium 6.1 H* (3.5-5.1) mmol/L Chloride 95 L (98-107) mmol/L Carbon Dioxide 21.6 (21.0-32.0) mmol/L BUN 34 H (7-18) mg/dL Creatinine 1.29 H (0.51-1.17) mg/dL Est Cr Clr Drug Dosing TNP Estimated GFR (MDRD) 55 mL/min Glucose 592 H* (74-106) mg/dL POC Glucose > 500 H* (65-110) mg/dl Lactic Acid (0.4-2.0) mmol/L Calcium 9.5 (8.5-10.1) mg/dL Total Bilirubin 0.5 (0.2-1.0) mg/dL AST 26 (15-37) U/L ALT 28 (12-78) U/L Alkaline Phosphatase 183 H (46-116) IU/L Total Protein 7.7 (6.4-8.2) g/dL Albumin 3.4 (3.4-5.0) g/dL Specimen Type Urine Color Urine Appearance Urine pH (5.0-9.0) Ur Specific [place] (1.005-1.030) Urine Protein (NEGATIVE) mg/dL Urine Glucose (UA) (NEGATIVE) mg/dL Urine Ketones (NEGATIVE) mg/dL Urine Occult Blood (NEGATIVE) Urine Nitrite (NEGATIVE) Urine Bilirubin (NEGATIVE) Urine Urobilinogen (0.2-1.0) E.U./dL Ur Leukocyte Esterase (NEGATIVE) 04/13/20 04/13/20 Range/Units 10:30 10:44 WBC (4.0-10.2) K/uL RBC (4.33-5.41) M/uL Hgb (13.1-16.8) g/dL Hct (39.0-49.0) % MCV (84.0-98.0) fL MCH (28.2-33.3) pg MCHC (31.7-36.0) g/dL RDW (11.2-14.1) % Plt Count (150-350) K/uL Neut % (Auto) (45.0-80.0) % Lymph % (Auto) (10.0-50.0) % [place] % (Auto) (2.0-14.0) % Eos % (Auto) (0.0-5.0) % Baso % (Auto) (0.0-2.0) % Neut # (Auto) (1.40-7.00) K/uL Lymph # (Auto) (0.50-3.50) K/uL [place] # (Auto) (0.00-1.00) K/uL Eos # (Auto) (0.00-0.50) K/uL Baso # (Auto) (0.00-0.20) K/uL Sodium (136-145) mmol/L Potassium (3.5-5.1) mmol/L Chloride (98-107) mmol/L Carbon Dioxide (21.0-32.0) mmol/L BUN (7-18) mg/dL Creatinine (0.51-1.17) mg/dL Est Cr Clr Drug Dosing Estimated GFR (MDRD) mL/min Glucose (74-106) mg/dL POC Glucose (65-110) mg/dl Lactic Acid 1.7 (0.4-2.0) mmol/L Calcium (8.5-10.1) mg/dL Total Bilirubin (0.2-1.0) mg/dL AST (15-37) U/L ALT (12-78) U/L Alkaline Phosphatase (46-116) IU/L Total Protein (6.4-8.2) g/dL Albumin (3.4-5.0) g/dL Specimen Type Urincc Urine Color Yellow Urine Appearance Clear Urine pH 5.0 (5.0-9.0) Ur Specific [place] 1.015 (1.005-1.030) Urine Protein Negative (NEGATIVE) mg/dL Urine Glucose (UA) 500 H (NEGATIVE) mg/dL Urine Ketones 15 H (NEGATIVE) mg/dL Urine Occult Blood Negative (NEGATIVE) Urine Nitrite Negative (NEGATIVE) Urine Bilirubin Negative (NEGATIVE) Urine Urobilinogen 0.2 (0.2-1.0) E.U./dL Ur Leukocyte Esterase Negative (NEGATIVE) Meds: Medications Generic Name Dose Route Start Last Admin Trade Name Freq PRN Reason Stop Dose Admin Insulin Human Regular 100 unit 100 mls @ 0 mls/hr 04/13/20 12:15 / Sodium Chloride IV TITRATE JULIA Protocol 0.1 UNITS/KG/HR Sodium Chloride 10 ml 04/13/20 11:56 04/13/20 12:01 Saline Flush FLUSH 10 ml ASDIRECTED PRN Administration Keep Vein Open Discontinued Medications Generic Name Dose Route Start Last Admin Trade Name Freq PRN Reason Stop Dose Admin Sodium Chloride 1,000 mls @ 1,000 mls/hr 04/13/20 10:21 04/13/20 11:00 Normal Saline IV 04/13/20 11:20 1,000 mls/hr .BOLUS ONE Administration Insulin Human Regular 5 unit 04/13/20 11:44 04/13/20 11:51 Humulin R IV 04/13/20 11:45 5 unit ONETIME ONE Administration Morphine Sulfate 2 mg 04/13/20 10:50 04/13/20 10:59 Morphine IVPUSH 04/13/20 10:51 2 mg ONETIME ONE Administration Morphine Sulfate 2 mg 04/13/20 11:47 04/13/20 11:55 Morphine IVPUSH 04/13/20 11:48 2 mg ONETIME ONE Administration Ondansetron HCl 8 mg 04/13/20 10:22 04/13/20 10:59 Zofran IVPUSH 04/13/20 10:23 8 mg ONETIME ONE Administration - Re-Assessments/Exams Free Text/Narrative Re-Assessment/Exam: 04/13/20 12:10 Pt given IV NS, Regular insulin 5 mg IV and Zofran 8 mg IV Insulin drip started Pt also given Morphine 2 mg IV X 2 Departure - Departure Time of Disposition: 12:15 Disposition: DC/Tfer to Acute Hospital 02 Clinical Impression: Hyperkalemia, Hyperglycemia - Discharge Information Referrals: Malka Madrid PA [Primary Care Provider] - - My Orders Last 24 Hours: My Active Orders 04/13/20 10:21 Blood Glucose Check, Bedside [RC] ONETIME 04/13/20 11:29 EKG Documentation Completion [RC] ASDIRECTED 04/13/20 11:56 Sodium Chloride 0.9% [Saline Flush] 10 ml FLUSH ASDIRECTED PRN 04/13/20 12:02 BLOOD GAS ARTERIAL,POC [POC] Stat 04/13/20 12:15 Regular Insulin,Human 100 Units in Normal Saline @ 0.1 UNITS/KG/HR Insulin Regular, Human [HumuLIN R] 100 unit Sodium Chloride 0.9% [Normal Saline] 99 ml IV TITRATE - Assessment/Plan Last 24 Hours: My Active Orders 04/13/20 10:21 Blood Glucose Check, Bedside [RC] ONETIME 04/13/20 11:29 EKG Documentation Completion [RC] ASDIRECTED 04/13/20 11:56 Sodium Chloride 0.9% [Saline Flush] 10 ml FLUSH ASDIRECTED PRN 04/13/20 12:02 BLOOD GAS ARTERIAL,POC [POC] Stat 04/13/20 12:15 Regular Insulin,Human 100 Units in Normal Saline @ 0.1 UNITS/KG/HR Insulin Regular, Human [HumuLIN R] 100 unit Sodium Chloride 0.9% [Normal Saline] 99 ml IV TITRATE
[2020-04-13] MEDS ORDERED: Sodium Chloride 0.9% 1,000 ML IV SCH (12:30)
[2020-04-13] MEDS ORDERED: HYDROmorphone 1 MG/ML Syringe IVPUSH ONE (13:43)
[2020-04-14 13:50] LABS: PCO2 ARTERIAL,POC 38 mmHg (35-48)
== END 2020-04-13 15:45 ==
LOC: LL.ED 10:18
DX: E87.5 Hyperkalemia (principal); E11.65 Type 2 diabetes mellitus with hyperglycemia; I25.10 Atherosclerotic heart disease of native coronary artery without angina pectoris; E78.00 Pure hypercholesterolemia, unspecified; I12.9 Hypertensive chronic kidney disease with stage 1 through stage 4 chronic kidney disease, or unspecified chronic kidney disease; E11.22 Type 2 diabetes mellitus with diabetic chronic kidney disease; N18.30 Chronic kidney disease, stage 3 unspecified; D63.1 Anemia in chronic kidney disease; E11.40 Type 2 diabetes mellitus with diabetic neuropathy, unspecified; E11.21 Type 2 diabetes mellitus with diabetic nephropathy; F41.9 Anxiety disorder, unspecified; F32.9 Major depressive disorder, single episode, unspecified; E03.9 Hypothyroidism, unspecified; Z88.8 Allergy status to other drugs, medicaments and biological substances; Z88.5 Allergy status to narcotic agent; Z79.899 Other long term (current) drug therapy; Z79.4 Long term (current) use of insulin; Z79.82 Long term (current) use of aspirin
CPT/HCPCS: 36415; 36600; 80053; 81003; 82803; 82947; 82962; 83605; 85025; 93005; 96374; 96375; 96376; 99285; J1170; J1815; J2270; J2405; J7030

== ENCOUNTER 2022-11-09 21:05 | Emergency (ER) | payer OTHER, MEDICARE, BC ==
[2022-11-09] MEDS ORDERED: traMADol 50 MG Tab PO ONE (21:26)
[2022-11-09] MEDS ORDERED: Morphine 2 MG/ML SYRINGE IVPUSH ONE (21:35)
[2022-11-09 21:43] LABS: BASOPHILS ABSOLUTE AUTO 0.05 K/uL (0.00-0.20); BASOPHILS PERCENT AUTO 0.7 % (0.0-2.0); EOSINOPHILS ABSOLUTE AUTO 0.41 K/uL (0.00-0.50); EOSINOPHILS PERCENT AUTO 5.4 % (0.0-5.0); HEMOGLOBIN 10.3 g/dL (13.1-16.8); LYMPHOCYTES ABSOLUTE AUTO 1.03 K/uL (0.50-3.50); LYMPHOCYTES PERCENT AUTO 13.6 % (10.0-50.0); MEAN CORPUSCULAR HEMOGLOBIN 28.8 pg (28.2-33.3); MEAN CORPUSCULAR HGB CONC 33.2 g/dL (31.7-36.0); MEAN CORPUSCULAR VOLUME 86.6 fL (84.0-98.0); MONOCYTES ABSOLUTE AUTO 0.68 K/uL (0.00-1.00); MONOCYTES PERCENT AUTO 8.9 % (2.0-14.0); NEUTROPHILS ABSOLUTE AUTO 5.43 K/uL (1.40-7.00); NEUTROPHILS PERCENT AUTO 71.4 % (45.0-80.0); PLATELET COUNT,PLT 218 K/uL (150-350); RED BLOOD CELL COUNT 3.58 M/uL (4.33-5.41); WHITE BLOOD CELL COUNT,WBC 7.6 K/uL (4.0-10.2)
[2022-11-09] MEDS ORDERED: Morphine 2 MG/ML SYRINGE IM ONE (21:43)
[2022-11-09] MEDS ORDERED: Gabapentin 300 MG Cap PO ONE (21:44)
[2022-11-09 21:56] LABS: ALANINE AMINOTRANSFERASE,ALT 28 U/L (12-78); ALBUMIN 3.3 g/dL (3.4-5.0); ALKALINE PHOSPHATASE 178 IU/L (46-116); ANION GAP 8.8 meq/L (7-15); ASPARTATE AMNIOTRANSFERASE,AST 19 U/L (15-37); BILIRUBIN TOTAL 0.3 mg/dL (0.2-1.0); BLOOD UREA NITROGEN,BUN 30 mg/dL (7-18); CALCIUM 8.8 mg/dL (8.5-10.1); CARBON DIOXIDE,CO2 28.2 mmol/L (21.0-32.0); CHLORIDE,CL 99 mmol/L (98-107); GLUCOSE RANDOM 340 mg/dL (70-99); POTASSIUM,K 4.8 mmol/L (3.5-5.1); PROTEIN TOTAL,TP 7.6 g/dL (6.4-8.2); SODIUM,NA 136 mmol/L (136-145)
[2022-11-09 21:57] LABS: ESTIMATED GFR 27 mL/min (>=60)
== END 2022-11-09 22:40 ==
LOC: LL.ED 21:05
DX: M54.42 Lumbago with sciatica, left side (principal); I25.10 Atherosclerotic heart disease of native coronary artery without angina pectoris; E78.00 Pure hypercholesterolemia, unspecified; I12.9 Hypertensive chronic kidney disease with stage 1 through stage 4 chronic kidney disease, or unspecified chronic kidney disease; E11.22 Type 2 diabetes mellitus with diabetic chronic kidney disease; N18.30 Chronic kidney disease, stage 3 unspecified; E11.21 Type 2 diabetes mellitus with diabetic nephropathy; E11.42 Type 2 diabetes mellitus with diabetic polyneuropathy; E03.9 Hypothyroidism, unspecified; Z76.5 Malingerer [conscious simulation]; Z88.8 Allergy status to other drugs, medicaments and biological substances; Z79.899 Other long term (current) drug therapy; Z79.4 Long term (current) use of insulin; Z79.82 Long term (current) use of aspirin
CPT/HCPCS: 36415; 72100; 72170; 80053; 85025; 96372; 99284; 99284-25; A9270-GY; J2270

== ENCOUNTER 2022-12-07 14:06 | Emergency (ER) | payer OTHER, MEDICARE, BC ==
[2022-12-07] MEDS ORDERED: Sodium Chloride 0.9% 1,000 ML IV ONE ×2 (14:10→14:28)
[2022-12-07] MEDS ORDERED: Ondansetron 4 MG/2 ML SDV IVPUSH PRN (14:11)
[2022-12-07 14:35] LABS: BASOPHILS ABSOLUTE AUTO 0.05 K/uL (0.00-0.20); BASOPHILS PERCENT AUTO 0.6 % (0.0-2.0); EOSINOPHILS ABSOLUTE AUTO 0.07 K/uL (0.00-0.50); EOSINOPHILS PERCENT AUTO 0.8 % (0.0-5.0); HEMATOCRIT 34.4 % (39.0-49.0); HEMOGLOBIN 11.1 g/dL (13.1-16.8); LYMPHOCYTES ABSOLUTE AUTO 0.62 K/uL (0.50-3.50); LYMPHOCYTES PERCENT AUTO 6.8 % (10.0-50.0); MEAN CORPUSCULAR HEMOGLOBIN 28.3 pg (28.2-33.3); MEAN CORPUSCULAR HGB CONC 32.3 g/dL (31.7-36.0); MEAN CORPUSCULAR VOLUME 87.8 fL (84.0-98.0); MONOCYTES ABSOLUTE AUTO 0.58 K/uL (0.00-1.00); MONOCYTES PERCENT AUTO 6.4 % (2.0-14.0); NEUTROPHILS ABSOLUTE AUTO 7.76 K/uL (1.40-7.00); NEUTROPHILS PERCENT AUTO 85.4 % (45.0-80.0); PLATELET COUNT,PLT 220 K/uL (150-350); RED BLOOD CELL COUNT 3.92 M/uL (4.33-5.41); RED CELL DISTRIBUTION WIDTH 12.7 % (11.2-14.1); WHITE BLOOD CELL COUNT,WBC 9.1 K/uL (4.0-10.2)
[2022-12-07] MEDS ORDERED: Iopamidol 612 MG/ML 100 ML Bottle IVPUSH ONE (14:47)
[2022-12-07] MEDS: HYDROmorphone 1 MG/ML Syringe IVPUSH PRN ×3 (14:53→18:01)
[2022-12-07] MEDS: Sodium Chloride 0.9% 10 ML Syringe FLUSH PRN ×3 (14:54→18:01)
[2022-12-07 15:02] LABS: ALANINE AMINOTRANSFERASE,ALT 26 U/L (12-78); ALBUMIN 3.3 g/dL (3.4-5.0); ALKALINE PHOSPHATASE 197 IU/L (46-116); ASPARTATE AMNIOTRANSFERASE,AST 23 U/L (15-37); BILIRUBIN TOTAL 0.3 mg/dL (0.2-1.0); BLOOD UREA NITROGEN,BUN 25 mg/dL (7-18); CALCIUM 9.1 mg/dL (8.5-10.1); CARBON DIOXIDE,CO2 30.6 mmol/L (21.0-32.0); CHLORIDE,CL 102 mmol/L (98-107); CREATININE 2.21 mg/dL (0.51-1.17); GLUCOSE RANDOM 103 mg/dL (70-99); POTASSIUM,K 5.5 mmol/L (3.5-5.1); PROTEIN TOTAL,TP 7.9 g/dL (6.4-8.2); SODIUM,NA 139 mmol/L (136-145)
[2022-12-07 15:11] LABS: ANION GAP 11.9 meq/L (7-15); ESTIMATED GFR 30 mL/min (>=60)
== END 2022-12-07 19:25 | disposition home or self-care (01) ==
LOC: LL.ED 14:06
DX: K59.03 Drug induced constipation (principal); T40.2X5A Adverse effect of other opioids, initial encounter; K21.9 Gastro-esophageal reflux disease without esophagitis; I25.10 Atherosclerotic heart disease of native coronary artery without angina pectoris; E11.21 Type 2 diabetes mellitus with diabetic nephropathy; Z88.8 Allergy status to other drugs, medicaments and biological substances; I12.9 Hypertensive chronic kidney disease with stage 1 through stage 4 chronic kidney disease, or unspecified chronic kidney disease; E11.22 Type 2 diabetes mellitus with diabetic chronic kidney disease; N18.30 Chronic kidney disease, stage 3 unspecified; E78.00 Pure hypercholesterolemia, unspecified; E11.40 Type 2 diabetes mellitus with diabetic neuropathy, unspecified; Z79.4 Long term (current) use of insulin; Z79.899 Other long term (current) drug therapy
CPT/HCPCS: 36415; 74176; 80053; 82947; 85025; 96361; 96374; 96375; 96376; 99284-25; J1170; J2405; J3490; J7030

== ENCOUNTER 2023-11-07 12:13 | Emergency (ER) | payer MEDICARE, BC ==
[2023-11-08 13:14] LABS: APPEARANCE,URINE SLIGHTLY CLOUDY; BILIRUBIN,URINE NEGATIVE (NEGATIVE); COLOR,URINE YELLOW; GLUCOSE,URINE NEGATIVE (NEGATIVE); KETONES,URINE TRACE mg/dL (NEGATIVE); LEUKOCYTE ESTERASE,URINE NEGATIVE (NEGATIVE); NITRITE,URINE NEGATIVE (NEGATIVE); OCCULT BLOOD,URINE NEGATIVE (NEGATIVE); PROTEIN,URINE NEGATIVE (NEGATIVE); UROBILINOGEN,URINE 0.2 E.U./dL (0.2-1.0)
== END 2023-11-07 14:23 ==
LOC: LL.ED 12:13
DX: M19.90 Unspecified osteoarthritis, unspecified site (principal); D72.829 Elevated white blood cell count, unspecified; R79.89 Other specified abnormal findings of blood chemistry; I25.10 Atherosclerotic heart disease of native coronary artery without angina pectoris; E78.00 Pure hypercholesterolemia, unspecified; K21.9 Gastro-esophageal reflux disease without esophagitis; I12.9 Hypertensive chronic kidney disease with stage 1 through stage 4 chronic kidney disease, or unspecified chronic kidney disease; E11.21 Type 2 diabetes mellitus with diabetic nephropathy; E11.22 Type 2 diabetes mellitus with diabetic chronic kidney disease; E03.9 Hypothyroidism, unspecified; Z79.899 Other long term (current) drug therapy; Z79.4 Long term (current) use of insulin; Z88.8 Allergy status to other drugs, medicaments and biological substances
CPT/HCPCS: 81003; 87086; 87088; 87186; 99284

== ENCOUNTER 2023-12-21 06:36 | Emergency (ER) | payer MEDICARE, BC ==
[2023-12-21] MEDS: Lactated Ringers 1,000 ML IV ONE ×2 (06:55→09:43)
[2023-12-21 07:05] LABS: BASOPHILS ABSOLUTE AUTO 0.06 K/uL (0.00-0.20); EOSINOPHILS PERCENT AUTO 8.1 % (0.0-5.0); HEMATOCRIT 36.9 % (39.0-49.0); HEMOGLOBIN 11.8 g/dL (13.1-16.8); LYMPHOCYTES ABSOLUTE AUTO 1.08 K/uL (0.50-3.50); LYMPHOCYTES PERCENT AUTO 17.5 % (10.0-50.0); MEAN CORPUSCULAR HEMOGLOBIN 28.2 pg (28.2-33.3); MEAN CORPUSCULAR VOLUME 88.1 fL (84.0-98.0); MONOCYTES ABSOLUTE AUTO 0.44 K/uL (0.00-1.00); MONOCYTES PERCENT AUTO 7.1 % (2.0-14.0); NEUTROPHILS PERCENT AUTO 66.3 % (45.0-80.0); PLATELET COUNT,PLT 207 K/uL (150-350); RED BLOOD CELL COUNT 4.19 M/uL (4.33-5.41); RED CELL DISTRIBUTION WIDTH 12.7 % (11.2-14.1); WHITE BLOOD CELL COUNT,WBC 6.2 K/uL (4.0-10.2)
[2023-12-21] MEDS ORDERED: Naloxone 0.4 MG/ML SDV IVPUSH PRN ×2 (07:16→10:03)
[2023-12-21] MEDS: fentaNYL 50 MCG/ML SDV IVPUSH ONE ×3 (07:19→12:19)
[2023-12-21 07:26] LABS: LACTIC ACID 2.9 mmol/L (0.4-2.0)
[2023-12-21] MEDS: Ondansetron 4 MG/2 ML SDV IVPUSH ONE (07:34)
[2023-12-21] MEDS: Ondansetron 4 MG/2 ML SDV ONE (07:35)
[2023-12-21 07:49] LABS: INR 1.1 (0.9-1.1); PROTHROMBIN TIME 10.5 SEC (9.0-11.1)
[2023-12-21 08:42] LABS: ALANINE AMINOTRANSFERASE,ALT 26 U/L (12-78); ALBUMIN 3.3 g/dL (3.4-5.0); ALKALINE PHOSPHATASE 162 IU/L (46-116); ASPARTATE AMNIOTRANSFERASE,AST 20 U/L (15-37); BILIRUBIN TOTAL 0.7 mg/dL (0.2-1.0); BLOOD UREA NITROGEN,BUN 45 mg/dL (7-18); CALCIUM 9.2 mg/dL (8.5-10.1); CARBON DIOXIDE,CO2 24.3 mmol/L (21.0-32.0); CHLORIDE,CL 92 mmol/L (98-107); MAGNESIUM 2.2 mg/dL (1.8-2.4); PRO B-TYPE NATRIUR PEPT,BNPPRO 2977 pg/mL (0-125); PROTEIN TOTAL,TP 7.7 g/dL (6.4-8.2); SODIUM,NA 131 mmol/L (136-145)
[2023-12-21 08:45] LABS: ANION GAP 20.4 meq/L (7-15); ESTIMATED GFR 20 mL/min (>=60)
[2023-12-21 08:47] LABS: POTASSIUM,K 5.7 mmol/L (3.5-5.1)
[2023-12-21 08:48] LABS: CREATININE 3.13 mg/dL (0.51-1.17); GLUCOSE RANDOM 726 mg/dL (70-99)
[2023-12-21] MEDS ORDERED: Glucagon,Human Recombinant 1 MG Vial IM PRN (09:41)
[2023-12-21] MEDS ORDERED: 50% Dextrose in Water 50 ML Syringe IVPUSH PRN (09:41)
[2023-12-21] MEDS: Sodium Chloride 0.9% 1,000 ML IV ONE (10:00)
[2023-12-21] MEDS: Sodium Chloride 0.9% 10 ML Syringe FLUSH PRN (10:07)
[2023-12-21] MEDS: Sodium Chloride 0.9% 1,000 ML IV SCH (10:07)
[2023-12-21] MEDS: Insulin Regular, Human 100 Units/ML 3 ML Vial IV ONE (10:07)
[2023-12-21] MEDS: Ondansetron 4 MG/2 ML SDV IVPUSH PRN (10:13)
[2023-12-21] MEDS: Norflurane/HFc 245FA Medium Stream Spray 103.5 ML Can ONE (10:25)
[2023-12-21] MEDS: Norepinephrine Bit/D5W Premix 250 ML IV SCH (10:26)
[2023-12-21 10:27] LABS: BLOOD UREA NITROGEN,BUN 47 mg/dL (7-18); CALCIUM 8.8 mg/dL (8.5-10.1); CARBON DIOXIDE,CO2 22.5 mmol/L (21.0-32.0)
[2023-12-21 10:40] LABS: ANION GAP 20.6 meq/L (7-15); CHLORIDE,CL 93 mmol/L (98-107); SODIUM,NA 129 mmol/L (136-145)
[2023-12-21 10:53] LABS: ESTIMATED GFR 21 mL/min (>=60); POTASSIUM,K 7.1 mmol/L (3.5-5.1)
[2023-12-21 10:54] LABS: GLUCOSE RANDOM 709 mg/dL (70-99)
[2023-12-21 10:55] LABS: CREATININE 3.02 mg/dL (0.51-1.17)
[2023-12-21] MEDS: Sodium Bicarbonate 8.4% 50 MEQ/50 ML Syringe IVPUSH ONE ×2 (10:57→11:44)
[2023-12-21] MEDS: Calcium Gluconate 10% 1 GM/10 ML SDV IVPUSH ONE (11:15)
[2023-12-21] MEDS: Sodium Zirconium Cyclosilicate 10 GM Packet PO SCH (11:15)
[2023-12-21] MEDS: Insulin Regular in 0.9 % NACL 100 ML IV SCH (11:33)
[2023-12-21] MEDS: cefTRIAXone 2 GM Vial IVPUSH SCH (12:02)
[2023-12-21] MEDS: Lidocaine 2% HCl 11 ML Jelly Filled Syringe ONE (12:15)
[2023-12-21] MEDS: Sodium Bicarbonate 8.4% 50 MEQ/50 ML Syringe ONE (12:16)
[2023-12-21] MEDS ORDERED: fentaNYL 50 MCG/ML SDV ONE (12:17)
== END 2023-12-21 12:30 ==
LOC: LL.ED 06:36
DX: A41.9 Sepsis, unspecified organism (principal); N17.9 Acute kidney failure, unspecified; R65.21 Severe sepsis with septic shock; G89.29 Other chronic pain; E11.00 Type 2 diabetes mellitus with hyperosmolarity without nonketotic hyperglycemic-hyperosmolar coma (NKHHC); E78.00 Pure hypercholesterolemia, unspecified; I25.10 Atherosclerotic heart disease of native coronary artery without angina pectoris; K21.9 Gastro-esophageal reflux disease without esophagitis; I12.9 Hypertensive chronic kidney disease with stage 1 through stage 4 chronic kidney disease, or unspecified chronic kidney disease; N18.9 Chronic kidney disease, unspecified; E03.9 Hypothyroidism, unspecified; E11.40 Type 2 diabetes mellitus with diabetic neuropathy, unspecified; E11.22 Type 2 diabetes mellitus with diabetic chronic kidney disease; E11.21 Type 2 diabetes mellitus with diabetic nephropathy; Z88.8 Allergy status to other drugs, medicaments and biological substances; Z79.899 Other long term (current) drug therapy; Z79.4 Long term (current) use of insulin; Z90.49 Acquired absence of other specified parts of digestive tract
CPT/HCPCS: 36415; 71045; 80048; 80053; 82947; 83605; 83735; 83880; 84132; 84484; 85025; 85610; 87040; 93005; 96361; 96365; 96375; 96376; 99285-25; A9270-GY; J0612; J0696; J1815-GY; J2405; J3010; J3370; J3490; J7030; J7050; J7120

== ENCOUNTER 2024-09-11 15:05 | Emergency (ER) | payer BC, MEDICARE, OTHER ==
[2024-09-11] MEDS: Acetaminophen/HYDROcodone 325-5 MG Tab PO ONE (15:39)
[2024-09-11] MEDS: Lactated Ringers 1,000 ML IV SCH (16:17)
[2024-09-11] MEDS: Sodium Chloride 0.9% 10 ML Syringe FLUSH PRN (16:21)
[2024-09-11 18:41] LABS: BASOPHILS ABSOLUTE AUTO 0.03 K/uL (0.00-0.20); BASOPHILS PERCENT AUTO 0.4 % (0.0-2.0); EOSINOPHILS ABSOLUTE AUTO 0.07 K/uL (0.00-0.50); EOSINOPHILS PERCENT AUTO 0.8 % (0.0-5.0); HEMATOCRIT 32.7 % (39.0-49.0); IMMATURE GRAN ABSOLUTE AUTO 0.02 10^3/uL (0.00-0.04); IMMATURE GRAN PERCENT AUTO 0.2 % (0.0-0.4); LYMPHOCYTES ABSOLUTE AUTO 1.35 K/uL (0.50-3.50); MEAN CORPUSCULAR HEMOGLOBIN 29.2 pg (28.2-33.3); MEAN CORPUSCULAR HGB CONC 33.6 g/dL (31.7-36.0); MEAN CORPUSCULAR VOLUME 86.7 fL (84.0-98.0); MONOCYTES ABSOLUTE AUTO 0.87 K/uL (0.00-1.00); MONOCYTES PERCENT AUTO 10.3 % (2.0-14.0); NEUTROPHILS ABSOLUTE AUTO 6.11 K/uL (1.40-7.00); NEUTROPHILS PERCENT AUTO 72.3 % (45.0-80.0); PLATELET COUNT,PLT 167 K/uL (150-350); RED BLOOD CELL COUNT 3.77 M/uL (4.33-5.41); RED CELL DISTRIBUTION WIDTH 12.6 % (11.2-14.1); WHITE BLOOD CELL COUNT,WBC 8.5 K/uL (4.0-10.2)
[2024-09-11 19:06] LABS: ANION GAP 12.7 meq/L (7-15); BLOOD UREA NITROGEN,BUN 59 mg/dL (7-18); CALCIUM 8.9 mg/dL (8.5-10.1); CARBON DIOXIDE,CO2 27.6 mmol/L (21.0-32.0); CHLORIDE,CL 99 mmol/L (98-107); GLUCOSE RANDOM 326 mg/dL (70-99); POTASSIUM,K 4.3 mmol/L (3.5-5.1); SODIUM,NA 135 mmol/L (136-145)
[2024-09-11 19:07] LABS: ESTIMATED GFR 20 mL/min (>=60)
[2024-09-11 19:08] LABS: CREATININE 3.14 mg/dL (0.51-1.17)
== END 2024-09-11 19:43 ==
LOC: LL.ED 15:05
DX: N17.9 Acute kidney failure, unspecified (principal); I13.0 Hypertensive heart and chronic kidney disease with heart failure and stage 1 through stage 4 chronic kidney disease, or unspecified chronic kidney disease; I50.9 Heart failure, unspecified; N18.32 Chronic kidney disease, stage 3b; E11.22 Type 2 diabetes mellitus with diabetic chronic kidney disease; I25.10 Atherosclerotic heart disease of native coronary artery without angina pectoris; E78.00 Pure hypercholesterolemia, unspecified; E11.21 Type 2 diabetes mellitus with diabetic nephropathy; E03.9 Hypothyroidism, unspecified; Z79.4 Long term (current) use of insulin; Z79.899 Other long term (current) drug therapy; Z79.01 Long term (current) use of anticoagulants; Z79.890 Hormone replacement therapy
CPT/HCPCS: 36415; 80048; 82947; 83735; 83880; 85025; 96360; 96361; 99284; 99285-25; A9270-GY; J7120